=== PATIENT | female | born 1990 | race Caucasian/White ===

== ENCOUNTER 2016-03-30 00:50 | Emergency (ER) | payer OTHER ==
[2016-03-30] MEDS ORDERED: CIPROFLOXACIN HC OTIC SUSPENSION As Ordered ONE (02:00)
--- NOTE | 2016-03-30 02:08 | EDDOCDS ---
Physician Documentation [facility] Name: Mary Dubon Age: 25 yrs Sex: Female : 1990 Arrival Date: 03/30/2016 Time: 00:50 Bed I2 / M2 Private MD: Disposition: 03/30/16 01:57 Discharged to Home/Self Care. Impression: Otitis externa - RIGHT . - Condition is Stable. - Discharge Instructions: Otitis Externa. - Prescriptions for Cipro HC 0.2- 1 % Otic Drops, Suspension - instill 3 drop by OTIC route every 12 hours for 7 days; 10 milliliter. Fluticasone 50 mcg/actuation Nasal [place], Suspension - inhale 1 spray by INTRANASAL route 2 times per day; 1 bottle. - Medication Reconciliation, Local Pharmacy Hours form. - Follow up: Emergency Department; When: As needed; Reason: Worsening of conditions. Follow [facility]: [facility]; When: Call to arrange an appointment; Reason: Recheck today's complaints, Continuance of care, To establish care. - Problem is new. - Symptoms are unchanged. Historical: - Allergies: PENICILLINS; - Home Meds: 1. none - PMHx: none; - PSHx: right ankle; - Social history: Smoking status: Patient uses tobacco products, current every day smoker. No barriers to communication noted, The patient speaks fluent Ghanaian. - Family history: Not pertinent. - : The pt / caregiver states he / she is not on anticoagulants. Home medication list is obtained from the patient. - Exposure Risk Screening:: None identified. 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 3 in. (160.02 cm) (R); Pain 10/10; 02:04 BP 128 / 56; Pulse 82; Resp 18; Temp 97.0(O); Pulse Ox 96% on R/A; Pain 0/10; jmb 00:56 Body Mass Index 24.80 (63.50 kg, 160.02 cm) af2 MDM: 01:44 Financial registration complete. hs2 01:51 Ciprofloxacin-Hydrocortisone Drops 0.2 %-1 % 2 drps Otic once; LEFT EAR PLEASE, THANK dt4 YOU. ordered. Administered Medications: 02:07 Drug: Ciprofloxacin-Hydrocortisone 2 drps [ciprofloxacin 0.2 %-hydrocortisone 1 % ear jmb drops,suspension (2 drps)] Route: Otic; Site: right ear; Signatures: Freeman Orozco RN RN ladanb Carole Grewal, PA-C PA-C dt4 Nany Tellez RN RN af2 Swati Corbin, Reg Reg hs2 MTDD
--- NOTE | 2016-03-30 02:08 | EDDOCDS ---
Nurse's Notes [facility] Name: Mayr Dubon Age: 25 yrs Sex: Female : 1990 Arrival Date: 03/30/2016 Time: 00:50 Bed I2 / M2 Private MD: Diagnosis: Otitis externa-RIGHT Presentation: 03/30 00:54 Presenting complaint: Patient states: right ear pain, recently tx for URI. af2 Suicide/Homicide risk assessment- the patient denies having any suicidal and/or homicidal ideations and does not present with any other emotional, behavioral or mental health complaints. Status: Patient is not a service cashier or dependent. Transition of care: patient was not received from another setting of care. 00:54 Acuity: KETAN Level 5 af2 00:54 Method Of Arrival: Walkin/Carried/Asstd af2 02:07 Adult Sepsis Screening: The patient does not have new or worsening altered mentation. jmb Patient's respiratory rate is less than 22. Systolic blood pressure is greater than 100. Patient has a qSOFA score of 0- Negative Sepsis Screen. Triage Assessment: 00:57 General: Appears in no apparent distress, Behavior is cooperative. Pain: Location: af2 right ear Pain currently is 10 out of 10 on a pain scale. HIV screening NA for this visit Offered previously. 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 none - PMHx: none; - PSHx: right ankle; - Social history: Smoking status: Patient uses tobacco products, current every day smoker. No barriers to communication noted, The patient speaks fluent Maori. - Family history: Not pertinent. - : The pt / caregiver states he / she is not on anticoagulants. Home medication list is obtained from the patient. - Exposure Risk Screening:: None identified. Screenin:04 Screening information is obtained from the patient. Fall risk: No risks identified. jmb Assistance ADL's: requires no assistance with activities of daily living. Abuse/DV Screen: The patient / caregiver reports he/she is: not in a situation that causes fear, pain or injury. Nutritional screening: No deficits noted. Advance Directives: Currently, there is no health care proxy. There is no active DNR order. There is no living will. There is no Power of Information Coder. home support is adequate. Assessment: 02:04 General: Patient instructed on discharge instructions. Patient asked if there were any jmb questions regarding discharge, patient stated no. Patient signed discharge instructions. Patient discharged in stable condition. . Vital Signs: 00:56 BP 135 / 65; Pulse 88; Resp 18 S; Temp 97.7(TE); Pulse Ox 96% on R/A; Weight 63.5 kg af2 (R); Height 5 ft. 3 in. (160.02 cm) (R); Pain 10/10; 02:04 BP 128 / 56; Pulse 82; Resp 18; Temp 97.0(O); Pulse Ox 96% on R/A; Pain 0/10; jmb 00:56 Body Mass Index 24.80 (63.50 kg, 160.02 cm) af2 Vitals: 00:56 Log In Time: March 30, 2016 at 00:50. af2 ED Course: 00:51 Patient visited by Claudine Jon. gjb 00:51 Patient moved to Waiting gjb 00:55 Triage Initiated af2 00:57 Patient visited by Nany Tellez RN. af2 01:15 Freeman Orozco,LINETTE is Primary Nurse. cjh 01:15 Patient moved to / M2 cj 01:39 [facility]. dt4 01:39 Jess Arzola MD is Attending Physician. dt4 01:39 Patient visited by Carole Grewal PA-C. dt4 01:56 [facility] is Referral Physician. dt4 02:04 The patient / caregiver is instructed regarding the plan of care and ED course. jmb 02:04 No IV's were initiated during this patient's visit. No procedures done that require jmb assistance. Administered Medications: 02:07 Drug: Ciprofloxacin-Hydrocortisone 2 drps [ciprofloxacin 0.2 %-hydrocortisone 1 % ear jmb drops,suspension (2 drps)] Route: Otic; Site: right ear; Order Results: There are currently no results for this order. Outcome: 01:57 Discharge ordered by Provider. dt4 02:04 Discharge Assessment: Patient awake, alert and oriented x 3. No cognitive and/or jmb functional deficits noted. Patient verbalized understanding of disposition instructions. Patient awake and alert. obeys commands, Oriented to person, place and time. Patient verbalized understanding of disposition instructions. Patient has no functional deficits. patient administered narcotics - no. The following High Risk Discharge criteria are identified: None. Discharged to home ambulatory, with significant other. Condition: stable. Discharge instructions given to patient, Instructed on discharge instructions, follow up and referral plans. medication usage, Demonstrated understanding of instructions, medications, Pt was receptive of discharge instructions/ teaching. Prescriptions given X 2. No special radiology studies were completed. Property sent home with patient. 02:07 Patient left the ED. hong Signatures: Leila Villafana,RN RN Freeman BrunoRN RN Carole Hou PA-C PA-C dt4 Nany Tellez RN RN af2 Claudine Jon MTDChristopher
--- NOTE | 2016-04-01 03:08 | EDDOCDS ---
Physician Documentation [facility] Name: Mary Dubon Age: 25 yrs Sex: Female : 1990 Arrival Date: 03/30/2016 Time: 00:50 Bed I2 / M2 Private MD: Disposition: 03/30/16 01:57 Discharged to Home/Self Care. Impression: Otitis externa - RIGHT . - Condition is Stable. - Discharge Instructions: Otitis Externa. - Prescriptions for Cipro HC 0.2- 1 % Otic Drops, Suspension - instill 3 drop by OTIC route every 12 hours for 7 days; 10 milliliter. Fluticasone 50 mcg/actuation Nasal [place], Suspension - inhale 1 spray by INTRANASAL route 2 times per day; 1 bottle. - Medication Reconciliation, Local Pharmacy Hours form. - Follow up: Emergency Department; When: As needed; Reason: Worsening of conditions. Follow up: [facility]; When: Call to arrange an appointment; Reason: Recheck today's complaints, Continuance of care, To establish care. - Problem is new. - Symptoms are unchanged. Historical: - Allergies: PENICILLINS; - Home Meds: 1. none - PMHx: none; - PSHx: right ankle; - Social history: Smoking status: Patient uses tobacco products, current every day smoker. No barriers to communication noted, The patient speaks fluent Mauritanian. - Family history: Not pertinent. - : The pt / caregiver states he / she is not on anticoagulants. Home medication list is obtained from the patient. - Exposure Risk Screening:: None identified. 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 3 in. (160.02 cm) (R); Pain 10/10; 02:04 BP 128 / 56; Pulse 82; Resp 18; Temp 97.0(O); Pulse Ox 96% on R/A; Pain 0/10; jmb 00:56 Body Mass Index 24.80 (63.50 kg, 160.02 cm) af2 MDM: 01:44 Financial registration complete. hs2 01:51 Ciprofloxacin-Hydrocortisone Drops 0.2 %-1 % 2 drps Otic once; LEFT EAR PLEASE, THANK dt4 YOU. ordered. 03:22 [facility] Payment Agreement was scanned into [employer] and attached to record. hs2 14:00 T-Sheet-- Draft Copy was scanned into [employer] and attached to record. gb Administered Medications: 02:07 Drug: Ciprofloxacin-Hydrocortisone 2 drps [ciprofloxacin 0.2 %-hydrocortisone 1 % ear jmb drops,suspension (2 drps)] Route: Otic; Site: right ear; Signatures: Sandra Batista, Reg Reg gb Freeman Orozco,RN RN ladanb Carole Grewal, PAGrecia PAGrecia dt4 Nany TellezRN RN af2 Swati Corbin, Reg Reg hs2 The chart was reviewed and I authenticate all verbal orders and agree with the evaluation and treatment provided.Attachments: 03:22 [facility] Payment Agreement hs2 14:00 T-Sheet-- Draft Copy gb Chart Complete MTDD
--- NOTE | 2016-04-01 03:08 | EDDOCDS ---
Nurse's Notes [facility] Name: Mary Dubon Age: 25 yrs Sex: Female : 1990 Arrival Date: 03/30/2016 Time: 00:50 Bed I2 / M2 Private MD: Diagnosis: Otitis externa-RIGHT Presentation: 03/30 00:54 Presenting complaint: Patient states: right ear pain, recently tx for URI. af2 Suicide/Homicide risk assessment- the patient denies having any suicidal and/or homicidal ideations and does not present with any other emotional, behavioral or mental health complaints. Status: Patient is not a biomedical field service engineer or dependent. Transition of care: patient was not received from another setting of care. 00:54 Acuity: KETAN Level 5 af2 00:54 Method Of Arrival: Walkin/Carried/Asstd af2 02:07 Adult Sepsis Screening: The patient does not have new or worsening altered mentation. jmb Patient's respiratory rate is less than 22. Systolic blood pressure is greater than 100. Patient has a qSOFA score of 0- Negative Sepsis Screen. Triage Assessment: 00:57 General: Appears in no apparent distress, Behavior is cooperative. Pain: Location: af2 right ear Pain currently is 10 out of 10 on a pain scale. HIV screening NA for this visit Offered previously. SAMPLE HAND: 00:56 LMP 03/30/2016 af2 Historical: - Allergies: PENICILLINS; - Home Meds: 1. none - PMHx: none; - PSHx: right ankle; - Social history: Smoking status: Patient uses tobacco products, current every day smoker. No barriers to communication noted, The patient speaks fluent Urdu. - Family history: Not pertinent. - : The pt / caregiver states he / she is not on anticoagulants. Home medication list is obtained from the patient. - Exposure Risk Screening:: None identified. Screenin:04 Screening information is obtained from the patient. Fall risk: No risks identified. jmb Assistance ADL's: requires no assistance with activities of daily living. Abuse/DV Screen: The patient / caregiver reports he/she is: not in a situation that causes fear, pain or injury. Nutritional screening: No deficits noted. Advance Directives: Currently, there is no health care proxy. There is no active DNR order. There is no living will. There is no Power of Pill Machine Operator. home support is adequate. Assessment: 02:04 General: Patient instructed on discharge instructions. Patient asked if there were any jmb questions regarding discharge, patient stated no. Patient signed discharge instructions. Patient discharged in stable condition. . Vital Signs: 00:56 BP 135 / 65; Pulse 88; Resp 18 S; Temp 97.7(TE); Pulse Ox 96% on R/A; Weight 63.5 kg af2 (R); Height 5 ft. 3 in. (160.02 cm) (R); Pain 10/10; 02:04 BP 128 / 56; Pulse 82; Resp 18; Temp 97.0(O); Pulse Ox 96% on R/A; Pain 0/10; jmb 00:56 Body Mass Index 24.80 (63.50 kg, 160.02 cm) af2 Vitals: 00:56 Log In Time: March 30, 2016 at 00:50. af2 ED Course: 00:51 Patient visited by Claudine Jon. gjb 00:51 Patient moved to Waiting gjb 00:55 Triage Initiated af2 00:57 Patient visited by Nany Tellez RN. af2 01:15 Freeman Orozco,LINETTE is Primary Nurse. cjh 01:15 Patient moved to / M2 cj 01:39 Carole Grewal [facility]-C is [facility]. dt4 01:39 Jess Arzola MD is Attending Physician. dt4 01:39 Patient visited by Carole Grewal PA-C. dt4 01:56 [facility] is Referral Physician. dt4 02:04 The patient / caregiver is instructed regarding the plan of care and ED course. jmb 02:04 No IV's were initiated during this patient's visit. No procedures done that require jmb assistance. 03:22 [facility] Payment Agreement was scanned into [employer] and attached to record. hs2 14:00 T-Sheet-- Draft Copy was scanned into [employer] and attached to record. gb Administered Medications: 02:07 Drug: Ciprofloxacin-Hydrocortisone 2 drps [ciprofloxacin 0.2 %-hydrocortisone 1 % ear jmb drops,suspension (2 drps)] Route: Otic; Site: right ear; Order Results: There are currently no results for this order. Outcome: 01:57 Discharge ordered by Provider. dt4 02:04 Discharge Assessment: Patient awake, alert and oriented x 3. No cognitive and/or jmb functional deficits noted. Patient verbalized understanding of disposition instructions. Patient awake and alert. obeys commands, Oriented to person, place and time. Patient verbalized understanding of disposition instructions. Patient has no functional deficits. patient administered narcotics - no. The following High Risk Discharge criteria are identified: None. Discharged to home ambulatory, with significant other. Condition: stable. Discharge instructions given to patient, Instructed on discharge instructions, follow up and referral plans. medication usage, Demonstrated understanding of instructions, medications, Pt was receptive of discharge instructions/ teaching. Prescriptions given X 2. No special radiology studies were completed. Property sent home with patient. 02:07 Patient left the ED. jmb Signatures: Sandra Batista, Reg Reg gb Leila Villafana,RN RN Freeman BrunoRN RN Carole Hou, PA-C PA-C dt4 Nany TellezRN RN Claudine Callahan Hillary, Reg Reg hs2 Chart Complete [place]ES
--- NOTE | 2016-04-01 03:08 | EDDOCDS ---
[facility] Name: Mary Dubon Age: 25 yrs Sex: Female : 1990 Arrival Date: 03/30/2016 Time: 00:50 Bed I2 / M2 Private MD: Disposition: 03/30/16 01:57 Discharged to Home/Self Care. Impression: Otitis externa - RIGHT . - Condition is Stable. - Discharge Instructions: Otitis Externa. - Prescriptions for Cipro HC 0.2- 1 % Otic Drops, Suspension - instill 3 drop by OTIC route every 12 hours for 7 days; 10 milliliter. Fluticasone 50 mcg/actuation Nasal [place], Suspension - inhale 1 spray by INTRANASAL route 2 times per day; 1 bottle. - Medication Reconciliation, Local Pharmacy Hours form. - Follow up: Emergency Department; When: As needed; Reason: Worsening of conditions. Follow up: [facility]; When: Call to arrange an appointment; Reason: Recheck today's complaints, Continuance of care, To establish care. - Problem is new. - Symptoms are unchanged. Historical: - Allergies: PENICILLINS; - Home Meds: 1. none - PMHx: none; - PSHx: right ankle; - Social history: Smoking status: Patient uses tobacco products, current every day smoker. No barriers to communication noted, The patient speaks fluent [place] Citizen. - Family history: Not pertinent. - : The pt / caregiver states he / she is not on anticoagulants. Home medication list is obtained from the patient. - Exposure Risk Screening:: None identified. 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 3 in. (160.02 cm) (R); Pain 10/10; 02:04 BP 128 / 56; Pulse 82; Resp 18; Temp 97.0(O); Pulse Ox 96% on R/A; Pain 0/10; jmb 00:56 Body Mass Index 24.80 (63.50 kg, 160.02 cm) af2 MDM: 01:44 Financial registration complete. hs2 01:51 Ciprofloxacin-Hydrocortisone Drops 0.2 %-1 % 2 drps Otic once; LEFT EAR PLEASE, THANK dt4 YOU. ordered. 03:22 [facility] Payment Agreement was scanned into [employer] and attached to record. hs2 14:00 T-Sheet-- Draft Copy was scanned into [employer] and attached to record. gb Administered Medications: 02:07 Drug: Ciprofloxacin-Hydrocortisone 2 drps [ciprofloxacin 0.2 %-hydrocortisone 1 % ear jmb drops,suspension (2 drps)] Route: Otic; Site: right ear; Signatures: Sandra Batista, Reg Reg gb Freeman Orozco,RN RN ladanb Carole Grewal, PAGrecia PAGrecia dt4 Nany TellezRN RN af2 Swati Corbin, Reg Reg hs2 The chart was reviewed and I authenticate all verbal orders and agree with the evaluation and treatment provided.Attachments: 03:22 [facility] Payment Agreement hs2 14:00 T-Sheet-- Draft Copy gb Chart Complete MTDD
== END 2016-03-30 02:07 | disposition home or self-care (01) ==
LOC: M ED 00:50
DX: H60.91 Unspecified otitis externa, right ear (principal); Z72.0 Tobacco use; Z88.0 Allergy status to penicillin

== ENCOUNTER → 2017-10-23 | Outpatient (REF) | payer OTHER ==
[2017-10-23 12:38] LABS: BASO % 0.5 % (0.0-1.0); EOS # 0.4 10^3/uL (0.0-0.50); EOS % 4.9 % (0.0-3.0); HEMATOCRIT 39.3 % (36.0-47.0); HEMOGLOBIN 13.2 g/dl (12.0-15.5); IMMATURE GRANULOCYTE % 0.5 % (0-3.0); LYMPH # 2.6 10^3/uL (1.5-6.5); LYMPH % 33.4 % (24.0-44.0); MEAN CORPUSCULAR HEMOGLOBIN 31.4 pg (27.0-33.0); MEAN CORPUSCULAR HGB CONC 33.6 g/dl (32.0-36.5); MEAN CORPUSCULAR VOLUME 93.6 fl (80.0-96.0); MONO # 0.7 10^3/uL (0.0-0.8); MONO % 8.7 % (0.0-5.0); PLATELET COUNT, AUTOMATED 184 10^3/uL (150-450); RED CELL DISTRIBUTION WIDTH 12.7 % (11.5-14.5); WHITE BLOOD COUNT 7.7 10^3/uL (4.0-10.0)
[2017-10-23 12:47] LABS: TOTAL 25(OH) VITAMIN D 23.4 NG/ML (30.0-100.0)
[2017-10-23 12:51] LABS: ALBUMIN 3.5 GM/DL (3.2-5.2); ALBUMIN/GLOBULIN RATIO 1.13 (1.00-1.93); ALKALINE PHOSPHATASE 62 U/L (45-117); ALT/SGPT 17 U/L (12-78); ANION GAP 7 MEQ/L (8-16); AST/SGOT 12 U/L (7-37); BILIRUBIN,TOTAL 0.2 MG/DL (0.2-1.0); BLOOD UREA NITROGEN 10 MG/DL (7-18); CALCIUM LEVEL 8.3 MG/DL (8.5-10.1); CARBON DIOXIDE LEVEL 28 MEQ/L (21-32); CHLORIDE LEVEL 107 MEQ/L (98-107); CHOLESTEROL LEVEL 135 MG/DL (<200); CHOLESTEROL RISK RATIO 3.139 (<5); CREATININE FOR GFR 0.64 MG/DL (0.55-1.30); GLOMERULAR FILTRATION RATE > 60.0 (>60); GLUCOSE, FASTING 84 MG/DL (70-100); HDL CHOLESTEROL 43 MG/DL (>40); NON-HDL-C 92 MG/DL; POTASSIUM SERUM 4.3 MEQ/L (3.5-5.1); SODIUM LEVEL 142 MEQ/L (136-145); THYROID STIMULATING HORMONE 0.949 uIU/ML (0.358-3.740); TOTAL PROTEIN 6.6 GM/DL (6.4-8.2); TRIGLYCERIDES LEVEL 85 MG/DL (<150)
== END ==
LOC: M SFHCADAM 08:31
DX: E55.9 Vitamin D deficiency, unspecified (principal); F32.9 Major depressive disorder, single episode, unspecified; F43.12 Post-traumatic stress disorder, chronic; F17.210 Nicotine dependence, cigarettes, uncomplicated
CPT/HCPCS: 84443

== ENCOUNTER → 2017-11-09 | Outpatient (REF) | payer OTHER | LOC: M SFHCADAM 08:52 | DX: R10.9 Unspecified abdominal pain (principal) ==

== ENCOUNTER 2017-12-26 18:42 | Emergency (ER) | payer SELFPAY, OTHER ==
[2017-12-26] MEDS: CYCLOBENZAPRINE 10 MG TAB PO (20:21)
[2017-12-26] MEDS: KETOROLAC TROMETHAMINE 10 MG TAB PO (20:21)
== END 2017-12-26 22:00 | disposition home or self-care (01) ==
LOC: M ED 18:42
DX: M54.5 Low back pain (principal); Z88.0 Allergy status to penicillin
CPT/HCPCS: 72220

== ENCOUNTER → 2018-06-06 | Outpatient (REF) | payer MEDICAID ==
[~2018-06-06] MED LIST: CYCL10TA PO; KETO10TAB PO
[2018-06-06 19:57] LABS: BASO % 0.2 % (0.0-1.0); EOS # 0.1 10^3/uL (0.0-0.50); EOS % 1.3 % (0.0-3.0); HEMATOCRIT 35.1 % (36.0-47.0); HEMOGLOBIN 12.1 g/dl (12.0-15.5); LYMPH # 1.9 10^3/uL (1.5-6.5); LYMPH % 22.3 % (24.0-44.0); MEAN CORPUSCULAR HEMOGLOBIN 31.3 pg (27.0-33.0); MEAN CORPUSCULAR HGB CONC 34.5 g/dl (32.0-36.5); MEAN CORPUSCULAR VOLUME 90.7 fl (80.0-96.0); MONO # 0.5 10^3/uL (0.0-0.8); NEUTROPHILS % 69.7 % (36.0-66.0); PLATELET COUNT, AUTOMATED 201 10^3/uL (150-450); RED BLOOD COUNT 3.87 10^6/uL (4.00-5.40); WHITE BLOOD COUNT 8.6 10^3/uL (4.0-10.0)
[2018-06-06 21:38] LABS: CHLAMYDIA DNA AMPLIFICATION NEGATIVE (NEGATIVE); GC DNA AMPLIFICATION NEGATIVE (NEGATIVE)
[2018-06-08 12:38] LABS: HEPATITIS C VIRUS ABY INDEX 0.1 INDEX (<0.8); HIV 1&2 SCREEN CENTAUR NEGATIVE (NEGATIVE); RUBELLA IgG QUALITATIVE IMMUNE (IMMUNE)
== END ==
LOC: M LABDRWAD 19:33
PROVIDERS: ATTEND Advanced Practice Midwife
DX: Z34.81 Encounter for supervision of other normal pregnancy, first trimester (principal)

== ENCOUNTER → 2018-08-08 | Outpatient (CLI) | payer OTHER ==
--- NOTE | 2018-08-08 16:22 | REP ---
Clinical: Anatomical evaluation. Comparison: None . Findings: Examination demonstrates a single live intrauterine in breech presentation. motion is identified by technologist. Placenta is noted anterior and grade grade zero without evidence for placenta previa or abruption. Amniotic fluid volume is normal. Cervix measures 3.9 cm in length and appears closed. No evidence for nuchal cord. Gestational age by current measurements 19 weeks 6 days with TAYLER 12/27/2018 . FHR equals 149 beats per minute. BPD 4.7 cm 20 weeks 2 days HC 17.6 cm 20 weeks 1 day AC 15.4 cm 20 weeks 4 days FL 3.0 cm 20 weeks 2 days HL 2.8 cm 19 weeks 0 days HC/AC ratio 1.14 Estimated weight 325 grams ( 51st percentile). Anatomical assessment demonstrates normal structures including cranium, choroid plexus, cavum, cerebellum/posterior fossa, lungs, four-chamber heart/ventricular outflow tracts, diaphragm, stomach, cord insertion/three-vessel cord, kidneys/bladder, spine, and extremities. Impression: 1. Single live intrauterine in breech presentation demonstrating appropriate estimated weight. 2. Limited evaluation of the facial features. Remainder of the anatomical assessment is complete and normal. Electronically Signed by Nuno Larios MD 08/08/2018 04:12 P
== END ==
LOC: M RAD 14:31
PROVIDERS: ATTEND Advanced Practice Midwife
DX: O99.332 Smoking (tobacco) complicating pregnancy, second trimester (principal); Z3A.19 19 weeks gestation of pregnancy

== ENCOUNTER → 2018-08-31 | Outpatient (CLI) | payer OTHER ==
--- NOTE | 2018-08-31 13:49 | REP ---
OBSTETRIC SONOGRAPHY: HISTORY: Followup anatomy. Supervision of . FINDINGS: Scanning through the gravid uterus demonstrates a viable single intrauterine gestation in a cephalic lie. motion is observed and heart rate is recorded at 140 beats per minute. An anterior grade 1 placenta is seen without evidence of previa or abruption. Amniotic fluid is subjectively normal. Closed cervical length measured transabdominally is 3.3 cm. No extrauterine abnormality is observed. There has been appropriate interval growth. No anomaly is seen. spine is less than optimally seen today due to position however spine was visualized previously. The following additional anatomic structures are identified today and felt to be unremarkable: cranium, choroid plexus, cavum, cerebellum and posterior fossa, face and profile, lungs, four-chamber heart with left and right ventricular outflow tract views, diaphragm, left-sided stomach, abdominal wall cord insertion, three-vessel umbilical cord, kidneys and bladder, upper and lower extremities. Biometry Chart: BPD 5.7 cm = 23 weeks 3 days HC 21.4 cm = 23 weeks 3 days AC 17.5 cm = 22 weeks 3 days FL 3.7 cm = 21 weeks 6 days HL 3.6 cm = 22 weeks 4 days HC/AC ratio normal 1.22. Cephalic index normal 0.74. Estimated weight 497 grams, 1 pound 1 ounce, 22nd percentile for 23 weeks 1 day. IMPRESSION: Viable single intrauterine gestation at 22 weeks 5 days by today's composite sonographic criteria. Expected gestational age estimate based on prior sonography is 23 weeks 1 day. TAYLER by prior sonography December 27, 2018. anatomy survey is felt to be complete in conjunction with the prior study. Electronically Signed by Selvin Yoder MD 08/31/2018 03:12 P
== END ==
LOC: M RAD 10:54
PROVIDERS: ATTEND Advanced Practice Midwife
DX: Z34.82 Encounter for supervision of other normal pregnancy, second trimester (principal); Z3A.22 22 weeks gestation of pregnancy

== ENCOUNTER → 2018-11-02 | Outpatient (REF) | payer OTHER ==
[2018-11-02 13:23] LABS: HEMATOCRIT 31.7 % (36.0-47.0); HEMOGLOBIN 10.8 g/dl (12.0-15.5); MEAN CORPUSCULAR HEMOGLOBIN 31.2 pg (27.0-33.0); MEAN CORPUSCULAR HGB CONC 34.1 g/dl (32.0-36.5); MEAN CORPUSCULAR VOLUME 91.6 fl (80.0-96.0); PLATELET COUNT, AUTOMATED 207 10^3/uL (150-450); RED BLOOD COUNT 3.46 10^6/uL (4.00-5.40); WHITE BLOOD COUNT 10.4 10^3/uL (4.0-10.0)
== END ==
LOC: M LABDRWAD 12:11
PROVIDERS: ATTEND Obstetrics & Gynecology
DX: Z34.82 Encounter for supervision of other normal pregnancy, second trimester (principal)

== ENCOUNTER → 2018-11-23 | Outpatient (CLI) | payer OTHER | LOC: M LAB 07:06 | PROVIDERS: ATTEND Physician Assistant Medical | DX: Z34.82 Encounter for supervision of other normal pregnancy, second trimester (principal); Z36.89 Encounter for other specified antenatal screening ==

== ENCOUNTER → 2018-12-05 | Outpatient (REF) | payer OTHER | LOC: M LAB REF 12:53 | PROVIDERS: ATTEND Advanced Practice Midwife | DX: Z36.85 Encounter for antenatal screening for Streptococcus B (principal); O24.419 Gestational diabetes mellitus in pregnancy, unspecified control; Z3A.36 36 weeks gestation of pregnancy ==

== ENCOUNTER → 2018-12-06 | Outpatient (CLI) | payer OTHER ==
--- NOTE | 2018-12-06 09:16 | REP ---
Clinical: Growth evaluation. Comparison: 08/31/2018 . Findings: Examination demonstrates a single live intrauterine in cephalic presentation. motion is identified by technologist. Placenta is noted inferior and grade one without evidence for placenta previa or abruption. Amniotic fluid volume is normal. Cervix measures 3.7 cm in length and appears closed. No evidence for nuchal cord. Gestational age by LMP 36 weeks 2 days with TAYLER 01/01/2019 . Gestational age by current measurements 37 weeks 5 day with TAYLER 12/22/2018 . FHR equals 147 beats per minute. BPD 9.4 cm 38 weeks 2 days HC 33.6 cm 38 weeks 4 days AC 35.1 cm 39 weeks 0 days FL 7.2 cm 36 weeks 6 days HL 6.3 cm 36 weeks 1 day HC/AC ratio 0.96 Estimated weight 3478 grams ( 89th percentile). Amniotic fluid index: 19.6 cm (7.6 - 24.8) Umbilical cord SD ratio: 2.99 (2.94 - 3.94). Impression: Single live intrauterine in cephalic presentation demonstrating appropriate interval growth. No gross abnormalities are identified. Electronically Signed by Nuno Larios MD 12/06/2018 07:27 A
== END ==
LOC: M RAD 06:03
PROVIDERS: ATTEND Advanced Practice Midwife
DX: Z34.82 Encounter for supervision of other normal pregnancy, second trimester (principal)

== ENCOUNTER 2018-12-25 06:45 | Inpatient (IN) | payer OTHER ==
[2018-12-25] VITALS (19 sets, daily range): BP systolic 118–154; BP diastolic 65–93
[~2018-12-25] VITALS: Ht 160 cm; Wt 88.2 kg
[2018-12-25] MEDS: miSOPROStol 50 MCG 1/2 TAB (S0191) SL SCH ×2 (08:35→12:45)
[2018-12-25 09:05] LABS: HEMATOCRIT 34.2 % (36.0-47.0); HEMOGLOBIN 11.8 g/dl (12.0-15.5); MEAN CORPUSCULAR HEMOGLOBIN 31.7 pg (27.0-33.0); MEAN CORPUSCULAR HGB CONC 34.5 g/dl (32.0-36.5); MEAN CORPUSCULAR VOLUME 91.9 fl (80.0-96.0); PLATELET COUNT, AUTOMATED 188 10^3/uL (150-450); RED BLOOD COUNT 3.72 10^6/uL (4.00-5.40); WHITE BLOOD COUNT 10.3 10^3/uL (4.0-10.0)
[2018-12-25 09:25] LABS: GLUCOSE,RANDOM 108 MG/DL (LESS THAN 200)
[2018-12-25] MEDS ORDERED: BUTORPHANOL 2 MG/ML INJ (J0595) IV ONE (15:30)
[2018-12-25] MEDS ORDERED: PROMETHAZINE INJ 25 MG/ML VIAL (J2550) IV ONE (15:30)
[2018-12-25] MEDS ORDERED: OXYTOCIN 30 UNITS IN 0.9% NaCl 500ML IV BAG (J2590) As Ordered ONE (16:41)
--- NOTE | 2018-12-25 17:07 | HPE ---
DATE OF ADMISSION: 12/25/2018 A 28-year-old 4, para 1-0-2-1 female at 39 and 0/7 weeks gestation by last menstrual period (LMP), consistent with an early ultrasound, estimated date of confinement (EDC) 01/01/2019, presents for labor induction. The patient has a course significant for gestational diabetes requiring oral medications. She has occasional contractions. She denies vaginal bleeding. COURSE: The patient initiated care at 9 weeks gestation on 06/01/2018. Her first trimester blood pressure was 122/64. 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 She initiated Valtrex suppression during . She had no outbreaks during . She had abnormal glucose tolerance test and was subsequently started on metformin. MEDICAL HISTORY: 1. Type 2 genital herpes. 2. Depression/anxiety. OBSTETRICAL HISTORY: 1. In 2007, termination of . 2. In 2008, 40 weeks, vaginally, 7 pound 9 ounce male infant. 3. In 2014, 10 week termination of . SURGICAL HISTORY: 1. Dilation and curettage (D and C) times two. 2. Right knee surgery. ALLERGIES: PENICILLIN. SOCIAL HISTORY: The patient smokes about a half pack of cigarettes per day. She lives in [place]. The father of the baby is involved. She denies alcohol or drug use. FAMILY HISTORY: Noncontributory. PHYSICAL EXAMINATION: Blood pressure 134/84, pulse 84, in no apparent distress. Head and neck exam: Normal. Lungs: Clear. Heart: Regular rate and rhythm. Abdomen: Nontender, gravid. heart tones: Category 1. Sterile vaginal exam: 1 cm, 50%, -2, posterior soft vertex. Contractions: Irregular. Extremities: Nontender. LABORATORY: Blood type O positive, rubella immune, RPR nonreactive. GBS negative on 12/05/2018. ASSESSMENT: A 28-year-old 4, para 1-0-2-1 female at 39 and 0/7 weeks gestation with class A2 gestational diabetes, presents for labor induction. PLAN: The patient was admitted on 12/25/2018. Risks of induction were discussed.
[2018-12-25] MEDS ORDERED: METHYLERGONOVINE MALEATE 0.2 MG TAB PO PRN (20:30)
[2018-12-25] MEDS ORDERED: RHOGAM 300 MCG (1500 IU) INJ (J2790) IM SCH (20:30)
[2018-12-25] MEDS ORDERED: OXYTOCIN DRIP 30 UNITS in IV 1 EA IV ONE (20:30)
[2018-12-25] MEDS ORDERED: ACETAMINOPHEN TAB 650MG DOSE (2X325MG) PO PRN (20:30)
[2018-12-25] MEDS ORDERED: IBUPROFEN 600 MG TAB PO PRN (20:30)
[2018-12-25] MEDS ORDERED: MEASLES,MUMPS,RUBELLA VACCINE INJ (MMR-II) (90707) SC SCH (20:30)
[2018-12-25] MEDS ORDERED: ONDANSETRON 4MG/2ML VIAL (J2405) IV PRN (20:30)
[2018-12-25] MEDS ORDERED: DIBUCAINE 1% OINTMENT 30GM TOP PRN (20:30)
[2018-12-25] MEDS ORDERED: DOCUSATE SODIUM 100 MG CAP PO PRN (20:30)
[2018-12-25] MEDS: IBUPROFEN 800 MG TAB PO PRN (20:50)
[2018-12-26] MEDS: ACETAMINOPHEN 500 MG TAB PO PRN ×3 (04:52→22:26)
[2018-12-26 06:00] VITALS: BP 114/59
[2018-12-26] MEDS: IBUPROFEN 800 MG TAB PO PRN ×2 (09:29→17:55)
[2018-12-26] MEDS: PRENATAL VITAMINS CHEWABLE TABLET PO SCH (09:49)
--- NOTE | 2018-12-26 10:00 | DN ---
DATE OF DELIVERY: 12/25/2018 PREDELIVERY DIAGNOSIS: 39 weeks labor induction. POSTDELIVERY DIAGNOSIS: Delivered. PROCEDURE: Spontaneous vaginal delivery. TRACER POWDER BLENDER: Joss Altamirano MD ANESTHESIA: None. ESTIMATED BLOOD LOSS: 300 mL. FINDINGS: 7 pound 13 ounce male , score 8 and 9. DELIVERY SUMMARY: After a 45 minute second stage, the patient spontaneously delivered a 7 pound 13 ounce male with no delivery anesthesia. There was no nuchal cord. The shoulders delivered with ease. The was handed to the mother. The cord was doubly clamped and cut. The placenta delivered spontaneously and appeared to be intact. The patient received intravenous (IV) pitocin immediately after delivery of the placenta. There were no perineal lacerations present. Sponge counts were correct.
[2018-12-26 18:00] VITALS: BP 134/77
[2018-12-27] MEDS: IBUPROFEN 800 MG TAB PO PRN ×2 (02:33→10:17)
[2018-12-27] MEDS: ACETAMINOPHEN 500 MG TAB PO PRN (05:04)
[2018-12-27 06:02] VITALS: BP 116/58
[2018-12-27] MEDS ORDERED: ADACEL/BOOSTRIX VACCINE (DIPHTH/PERTUSS/ACELL/TETANUS)0.5ML SYR (90715) IM ONE (09:00)
[2018-12-27] MEDS: PRENATAL VITAMINS CHEWABLE TABLET PO SCH (10:17)
== END 2018-12-27 11:25 | disposition home or self-care (01) | DRG 560 ==
LOC: M LDI 06:45 → M OBS 22:35
PROVIDERS: ADMIT Advanced Practice Midwife; ATTEND Specialist
PROC: 3E0P7GC Introduction of Other Therapeutic Substance into Female Reproductive, Via Natural or Artificial Opening (ICD-10-PCS; 2018-12-25)
PROC: 10E0XZZ Delivery of Products of Conception, External Approach (ICD-10-PCS; principal; 2018-12-26)
DX: O24.425 Gestational diabetes mellitus in childbirth, controlled by oral hypoglycemic drugs (principal); Z3A.39 39 weeks gestation of pregnancy; Z37.0 Single live birth; Z79.84 Long term (current) use of oral hypoglycemic drugs; O99.334 Smoking (tobacco) complicating childbirth; F17.210 Nicotine dependence, cigarettes, uncomplicated

== ENCOUNTER → 2020-04-10 | Outpatient (CLI) | payer SELFPAY ==
[~2020-04-10] MED LIST changes: +CYCL-707 PO; -CYCL10TA PO
== END ==
LOC: M LABSMTC 11:43
PROVIDERS: ATTEND Pediatrics
DX: Z20.822 Contact with and (suspected) exposure to COVID-19 (principal)

== ENCOUNTER → 2021-12-22 | Outpatient (CLI) | payer OTHER | LOC: M PLAIMG 08:50 | PROVIDERS: ATTEND Pain Medicine Interventional Pain Medicine | DX: M47.817 Spondylosis without myelopathy or radiculopathy, lumbosacral region (principal); M51.26 Other intervertebral disc displacement, lumbar region ==

== ENCOUNTER → 2022-05-21 | Outpatient (REF) | payer OTHER ==
[2022-05-21 22:31] LABS: GC DNA AMPLIFICATION NEGATIVE (NEGATIVE)
== END ==
LOC: M LAB REF 20:22
PROVIDERS: ATTEND Physician Assistant
DX: R11.2 Nausea with vomiting, unspecified (principal)

== ENCOUNTER → 2022-05-25 | Outpatient (CLI) | payer OTHER ==
[2022-05-25 16:22] LABS: BASO % 0.4 % (0.0-1.0); EOS # 0.1 10^3/uL (0.0-0.5); EOS % 1.6 % (0.0-3.0); HEMATOCRIT 39.7 % (36.0-47.0); HEMOGLOBIN 13.4 g/dl (12.0-15.5); LYMPH # 2.4 10^3/uL (1.5-5.0); LYMPH % 28.2 % (24.0-44.0); MEAN CORPUSCULAR HEMOGLOBIN 33.1 pg (27.0-33.0); MEAN CORPUSCULAR HGB CONC 33.8 g/dl (32.0-36.5); MONO # 0.6 10^3/uL (0.0-0.8); MONO % 6.9 % (2.0-8.0); NEUTROPHILS # 5.3 10^3/uL (1.5-8.5); NEUTROPHILS % 62.3 % (36.0-66.0); PLATELET COUNT, AUTOMATED 227 10^3/uL (150-450); RED BLOOD COUNT 4.05 10^6/uL (4.00-5.40); WHITE BLOOD COUNT 8.5 10^3/uL (4.0-10.0)
[2022-05-25 16:49] LABS: ALBUMIN 3.8 G/DL (3.2-5.2); ALKALINE PHOSPHATASE 66 U/L (46-116); ALT/SGPT 41 U/L (7.0-40); AST/SGOT 21 U/L (<34); BILIRUBIN,TOTAL 0.2 MG/DL (0.3-1.2); BLOOD UREA NITROGEN 7 MG/DL (9-23); CALCIUM LEVEL 8.7 MG/DL (8.5-10.1); CARBON DIOXIDE LEVEL 31 MMOL/L (20-31); CHLORIDE LEVEL 105 MMOL/L (98-107); CREATININE FOR GFR 0.69 MG/DL (0.55-1.30); GLOMERULAR FILTRATION RATE > 60.0 (>60); GLUCOSE, FASTING 78 MG/DL (60-100); POTASSIUM SERUM 4.1 MMOL/L (3.5-5.1); SODIUM LEVEL 141 MMOL/L (136-145); TOTAL PROTEIN 6.3 G/DL (5.7-8.2)
== END ==
LOC: M WUC 10:55
PROVIDERS: ATTEND Family Medicine
DX: T50.905D Adverse effect of unspecified drugs, medicaments and biological substances, subsequent encounter (principal)

== ENCOUNTER 2022-06-26 18:51 | Emergency (ER) | payer OTHER ==
[~2022-06-26] VITALS: Ht 160 cm; Wt 72.7 kg
[2022-06-26] MEDS ORDERED: ALPRAZolam 0.5 MG TAB PO ONE (19:20)
[2022-06-26 19:30] LABS: BASO % 0.4 % (0.0-1.0); EOS # 0.1 10^3/uL (0.0-0.5); EOS % 1.5 % (0.0-3.0); HEMATOCRIT 37.1 % (36.0-47.0); HEMOGLOBIN 12.8 g/dl (12.0-15.5); LYMPH # 0.6 10^3/uL (1.5-5.0); LYMPH % 12.3 % (24.0-44.0); MEAN CORPUSCULAR HEMOGLOBIN 32.3 pg (27.0-33.0); MEAN CORPUSCULAR HGB CONC 34.5 g/dl (32.0-36.5); MEAN CORPUSCULAR VOLUME 93.7 fl (80.0-96.0); MONO # 0.4 10^3/uL (0.0-0.8); MONO % 7.6 % (2.0-8.0); NEUTROPHILS # 3.6 10^3/uL (1.5-8.5); NEUTROPHILS % 77.8 % (36.0-66.0); PLATELET COUNT, AUTOMATED 187 10^3/uL (150-450); RED BLOOD COUNT 3.96 10^6/uL (4.00-5.40); WHITE BLOOD COUNT 4.6 10^3/uL (4.0-10.0)
[2022-06-26 19:56] LABS: ALBUMIN 3.8 G/DL (3.2-5.2); ALKALINE PHOSPHATASE 79 U/L (46-116); ALT/SGPT 17 U/L (7.0-40); AST/SGOT 16 U/L (<34); BILIRUBIN,TOTAL 0.2 MG/DL (0.3-1.2); BLOOD UREA NITROGEN 13 MG/DL (9-23); CALCIUM LEVEL 8.4 MG/DL (8.5-10.1); CARBON DIOXIDE LEVEL 24 MMOL/L (20-31); CHLORIDE LEVEL 108 MMOL/L (98-107); CREATININE FOR GFR 0.88 MG/DL (0.55-1.30); GLOMERULAR FILTRATION RATE > 60.0 (>60); GLUCOSE, FASTING 86 MG/DL (60-100); POTASSIUM SERUM 3.5 MMOL/L (3.5-5.1); SODIUM LEVEL 138 MMOL/L (136-145); TOTAL PROTEIN 6.3 G/DL (5.7-8.2)
[2022-06-26 21:09] VITALS: BP 136/72
== END 2022-06-26 21:23 | disposition home or self-care (01) ==
LOC: EDBD 18:51 → M ED 18:51
DX: F41.1 Generalized anxiety disorder (principal); F17.200 Nicotine dependence, unspecified, uncomplicated; Z88.0 Allergy status to penicillin